=== PATIENT | female | born 1970 | race Caucasian/White ===

== ENCOUNTER → 2020-03-26 | Outpatient (CLI) | payer MEDICAID ==
[~2020-03-26] MED LIST: ASCO-339 PO; BIOT10004 PO; CHOL100022; CYAN250010 PO; PYRI100T17 PO
== END | disposition home or self-care (01) ==
LOC: LAB 15:51
PROVIDERS: ATTEND Obstetrics & Gynecology
DX: Z01.812 Encounter for preprocedural laboratory examination (principal); Z20.828 Contact with and (suspected) exposure to other viral communicable diseases
CPT/HCPCS: 87426

== ENCOUNTER 2020-03-27 09:03 | Day surgery (SDC) | payer MEDICAID ==
[~2020-03-27] VITALS: Ht 149.9 cm; Wt 52.6 kg
[2020-03-27] MEDS ORDERED: FERRIC SUBSULFATE SOLN 8GM TOP NR (09:30)
[2020-03-27] MEDS ORDERED: POTASSIUM IODIDE/IODINE 20ML TOP NR (09:45)
[2020-03-27 10:00] LABS: BASOPHILS % 0.8 % (0.0-2.0); EOSINOPHILS % 0.4 % (0.0-5.0); HEMOGLOBIN. 12.5 g/dL (12.0-16.0); LYMPHOCYTES % 25.3 % (20.0-50.0); MEAN CORPUSCULAR HEMOGLOBIN 32.1 pg (28.0-32.0); MEAN PLATELET VOLUME 7.6 fl (7.4-10.4); MONOCYTES % 4.8 % (2.0-8.0); NEUTROPHILS % 68.7 % (40.0-76.0); PLATELET 293 x1000/uL (130-400); RED BLOOD CELL COUNT 3.89 mill/uL (4.2-5.4); RED CELL DISTRIBUTION WIDTH 13.7 % (11.6-14.6)
[2020-03-27] MEDS ORDERED: METOCLOPRAMIDE HCL 10MG/2ML VIAL ONE (10:00)
[2020-03-27] MEDS ORDERED: PROPOFOL 200MG/20ML VIAL IV ONE (10:00)
[2020-03-27] MEDS ORDERED: MIDAZOLAM HCL 2 MG/2 ML VIAL ONE (10:00)
[2020-03-27] MEDS ORDERED: GLYCOPYRROLATE 0.2 MG/ML 2ML VIAL ONE (10:00)
[2020-03-27] MEDS ORDERED: SUCCINYLCHOLINE CHLORIDE 200MG/10ML IV ONE (10:00)
[2020-03-27] MEDS ORDERED: ONDANSETRON HCL 4MG/2ML INJ ONE (10:00)
[2020-03-27] MEDS ORDERED: FENTANYL CITRATE/PF 50MCG/ML 2ML VIAL ONE (10:00)
[2020-03-27 10:02] LABS: UCG SCREEN NEGATIVE
[2020-03-27 10:08] LABS: CHLORIDE 108 mEq/L (98-107)
[2020-03-27 10:11] LABS: PARTIAL THROMBOPLASTIN TIME 24.2 sec (23.4-31.0); PROTHROMBIN TIME 10.9 sec (9.6-11.0)
[2020-03-27] MEDS ORDERED: PYRI100T17 PO (10:19)
[2020-03-27] MEDS ORDERED: ASCO-339 PO (10:19)
[2020-03-27] MEDS ORDERED: BIOT10004 PO (10:19)
[2020-03-27] MEDS ORDERED: CYAN250010 PO (10:19)
[2020-03-27] MEDS ORDERED: CHOL100022 (10:19)
[2020-03-27] MEDS ORDERED: MEPERIDINE HCL/PF 25MG/ML CPJ IV PRN ×2 (10:45)
[2020-03-27] MEDS ORDERED: HYDROMORPHONE HCL/PF 2MG/ML CPJ IV PRN (10:45)
[2020-03-27] MEDS ORDERED: ONDANSETRON HCL 4MG/2ML INJ IV PRN (10:45)
[2020-03-27] MEDS ORDERED: MORPHINE SULFATE 2 MG/ML CPJ (NOT FOR IM USE) IV PRN (10:45)
[2020-03-27] MEDS ORDERED: SODIUM CHLORIDE 0.9% 1,000 ML IV ONE (10:45)
[2020-03-27] MEDS ORDERED: LACTATED RINGERS 1,000 ML IV SCH (11:00)
== END 2020-03-27 13:10 | disposition home or self-care (01) ==
LOC: OR 09:03 → EDUNIT# 11:30 → OR 13:10
PROVIDERS: ATTEND Obstetrics & Gynecology
DX: D06.9 Carcinoma in situ of cervix, unspecified (principal); Z98.891 History of uterine scar from previous surgery; Z98.890 Other specified postprocedural states; Z79.899 Other long term (current) drug therapy
CPT/HCPCS: 36415; 57520; 71045; 80053; 81025; 85025; 85610; 85730; 86850; 86900; 86901; 88305; 93005; J0330; J2250; J2405; J2704; J2765; J3010; J3490